=== PATIENT | female | born 1965 | race Caucasian/White ===

== ENCOUNTER 2018-06-19 06:18 | Observation (INO) ==
[2018-06-19] MEDS ORDERED: Metoprolol Tartrate 25 MG Tablet PO ONE (06:45)
[2018-06-19] MEDS ORDERED: Sod Chloride 0.9% Inj 1,000 ML IV.SIG SCH (06:45)
[2018-06-19] MEDS ORDERED: Sodium Chlor 0.9% Inj 500 ML IV.CONT ONE (06:45)
[2018-06-19] MEDS ORDERED: Chlorhexidine Gluconate 2% 1 Pack (2 Cloths) TOPICAL ONE (06:45)
[2018-06-19] MEDS ORDERED: Vancomycin Inj 1,000 MG in Sodium Chlor 0.9% Inj 250 ML IV.SIG SCH (07:00)
[2018-06-19] MEDS ORDERED: Artificial Tears Opth Oint 3.5 GM Tube ONE (07:25)
[2018-06-19] MEDS ORDERED: fentaNYL Citrate Inj 250 MCG/5 ML Ampul ONE (07:25)
[2018-06-19] MEDS ORDERED: Propofol Inj 500 MG/50 ML Vial ONE (07:26)
[2018-06-19] MEDS ORDERED: HYDROmorphone PF Inj 1 MG/ML Ampul ONE ×2 (08:09→08:26)
[2018-06-19] MEDS ORDERED: Gelatin Size 100 Topical Foam ONE (08:17)
[2018-06-19] MEDS ORDERED: Thrombin Topical Soln 5,000 UNIT Vial TOPICAL ONE (08:17)
[2018-06-19] MEDS ORDERED: ceFAZolin 1 GM Premix Inj 2 GM/100 ML PIGGYBACK IV.SIG ONE (08:17)
[2018-06-19] MEDS ORDERED: *morphine SULFATE 4 MG/ML PERIprocedure ONLY ONE ×3 (11:54→12:16)
[2018-06-19] MEDS ORDERED: fentaNYL Citrate Inj 100 MCG/2 ML Ampul ONE (11:59)
--- NOTE | 2018-06-19 12:08 | XR ---
EXAM DATE: 06/19/2018 11:57 AM EST AGE/SEX: 53 years / Female INDICATIONS: Herniated disk, artificial disk placement C6-7. CLINICAL DATA: This is the patient's initial encounter. Patient reports that signs and symptoms have been present for 1 day and indicates a pain score of 0/10. MEDICAL/SURGICAL HISTORY: None. None. COMPARISON: No prior exams available for comparison. FINDINGS: AP and lateral views of the cervical spine were obtained and demonstrate an artificial disc in place at the C6-7 level. The alignment is anatomic. An endotracheal tube and nasogastric tube are noted in place. CONCLUSION: Artificial disc in place at the C6-7 level. Electronically signed by: Jero Yousif MD Board Certified Radiologist 06/19/2018 12:07 PM [facility] Colon
[2018-06-19] MEDS ORDERED: Bisacodyl 10 MG Supp RECTAL PRN ×2 (12:29→12:31)
[2018-06-19] MEDS: Sod Chloride 0.9% Inj 1,000 ML IV.CONT SCH (12:45)
[2018-06-19] MEDS ORDERED: HYDROmorphone PF Inj 0.5 MG/0.5 ML Syringe ONE (12:49)
[2018-06-19] MEDS ORDERED: Menthol 5.8 MG Lozenge BUCCAL ONE (14:00)
--- NOTE | 2018-06-19 17:06 | P.OP ---
Preoperative Diagnosis: C6-7 disk herniation Postoperative Diagnosis: C6-7 disk herniation Date of procedure: 06/19/18 Procedure: C6-C7 anterior cervical discectomy, interbody arthroplasty using Mobi C Anesthesia: RUT Surgeon: Nicanor Schuster MD Honey Processor: Gregorio ford Pathology: none sent Operation and Findings: INDICATIONS FOR THE PROCEDURE Ms Serra is a 53 year-old female who presented with intractable neck pain and clinical evidence of C7 cervical radiculopathy. She was found to have focal disk herniation at C6-7 causing significant mass effect on the right C7 nerve root. She failed multiple modalities of nonsurgical treatment including physical therapy, analgesics, antiinflammatories, and pain management with multiple epidural steroid injections. The severity of her pain and symptoms were affecting her quality of life. An anterior cervical discectomy and arthroplasty were indicated. The [id number] details of the surgical procedure, indications, alternatives, risks and potential complications were fully discussed with the patient. The patient fully understood. All his questions were answered. No guarantees were given. She voiced requesting the procedure and signed informed consents. She was offered the alternative of delaying the procedure and continuing with nonsurgical management. DETAILS OF THE SURGICAL PROCEDURE SURGICAL APPROACH A skin incision was made along the inferior cervical crease on the left side with a #10 blade. The dissection was carried out through the platysma exposing the sternocleidomastoid muscle. The cervical spine was approached following the fascial layers of the neck, just medial to the anterior border of the sternocleidomastoid and carotid sheath by a combination of sharp and dull dissection. The omohyoid muscle was identified and carefully dissected laterally and the deep cervical fascia was carefully opened. The longus colli muscles were retracted to each side of the midline. A marker was placed at the c6-7 disc space and a cross-table lateral x-ray performed with a C-arm. An AP xray was then obtained as well, and the midline of the disk space was defined. SURGICAL DECOMPRESSION In order to decompress the anterior surface of the spinal cord it was necessary to perform a microsurgical resection of the disk. At this point in the procedure the operating microscope was draped in the usual sterile fashion and brought to the field. The rest of the surgical procedure was performed using microdissection technique with the exception of the closure. Under the operative microscopic a self-retaining retractor was placed underneath the longus colli muscle. The annulus was incised with a #15 blade and microdiscectomy was then carefully carried out using angled curets and pituitary forceps. The patient had a right disk extrusion which was producing mass affect on the exiting nerve root. This was carefully dissected with a nerve hock and resected with a think foot plate 2 mm Kerrison under high magnification. The posterior longitudinal ligament was then elevated with an angled curet and incised with a 15 bladed knife. A careful resection of the posterior longitudinal ligament was carried out using a thin footplate 2 mm Kerrison. Extruded disk fragments were causing mechanical compression over the exiting C7 nerve root were carefully dissected. The decompression was then carried out laterally, and a bilateral foraminotomy was performed with a 2 mm thin foot Kerrison. The epidural space was the systematically assessed with a nerve hook in search for disk fragments of scar tissue. An excellent decompression was achieved in both, the dural sac and bilateral exiting nerve roots. The incision was then irrigated with a large amount of antibiotic solution INTERBODY ARTHROPLASTY In order to avoid collapse of the disk space which would result in bilateral foraminal stenosis, and in order to maintain disk space height and function minimally development of adjacent level degeneration, it was necessary to place an interbody device. At this point of the procedure, gentle distraction was applied. The size of the interbody device was then assessed using a trial, and a cross table xray was done for confirmation of appropriate size and position of the device. Then the disk space was irrigated with antibiotic solution, and a 15mm by 5mm Mobi C artificial disk was carefully impacted into the disc space C6-7. An excellent position of the device was achieved. This was confirmed anatomically by feeling the space posterior to the implant and distance to the anterior surface of the dural sac. Radiological confirmation of the position was performed with a cross table AP and lateral X-ray views, performed with the C-arm. COMPLETION OF THE SURGICAL PROCEDURE Once that each interbody device was in an appropriate position, the distraction was discontinued. The position of the device as well as alignment of the spine were assessed anatomically by direct visualization, and radiologically by performing an AP and lateral X-ray of the cervical spine with the C-arm. The position of the implant was excellent. The incision was irrigated with several liters of antibiotic solution. Hemostasis was achieved with a bipolar. A 7 mm Tyson-Alba drain was left in the prevertebral space and externalized through a separate stab incision. The incision was then closed in layers. 3-0 Vicryl with interrupted sutures was used to close the platysma and subcutaneous tissue. The skin was closed with 4- 0 running subcuticular Vicryl and Dermabond was applied to the skin. The drain was secured with a 3-0 nylon. At the end of the procedure the sponge, needle and instrument counts were all correct. The estimated blood loss was less than 50 cc. No blood transfusion was given. No intraoperative complications occurred. The patient received prophylactic antibiotics. The patient was then extubated and transferred to the recovery room in stable condition.
[2018-06-19] MEDS: HYDROmorphone PF Inj 0.5 MG/0.5 ML Syringe IV.PUSH PRN (17:37)
[2018-06-19] MEDS: ceFAZolin 2 GM Premix Inj 2 GM/50 ML PIGGYBACK IV.SIG SCH (17:38)
[2018-06-19] MEDS: Senna/Docusate Sodium 8.6/50 MG Tablet PO SCH (20:44)
[2018-06-19] MEDS ORDERED: Senna/Docusate Sodium 8.6/50 MG Tablet PO SCH (21:00)
[2018-06-20] MEDS: ceFAZolin 2 GM Premix Inj 2 GM/50 ML PIGGYBACK IV.SIG SCH ×2 (00:46→09:08)
[2018-06-20 04:39] VITALS: RESP 17
[2018-06-20] MEDS: Sod Chloride 0.9% Inj 1,000 ML IV.CONT SCH ×2 (06:12→12:28)
[2018-06-20 08:06] VITALS: PULSE 59
[2018-06-20] MEDS ORDERED: Estradiol 1 MG Tablet PO SCH (09:00)
[2018-06-20] MEDS ORDERED: Pantoprazole Sodium 20 MG DR Tablet PO SCH (09:00)
[2018-06-20] MEDS: HYDROmorphone PF Inj 0.5 MG/0.5 ML Syringe IV.PUSH PRN (09:08)
[2018-06-20] MEDS: Senna/Docusate Sodium 8.6/50 MG Tablet PO SCH (09:17)
[2018-06-20 12:15] VITALS: BP 131/66; TEMP 98.2; O2SAT 93
--- NOTE | 2018-06-20 14:27 | P.PNNS ---
Subjective Interval history: The patient is stable postoperative day #1 status post anterior cervical discectomy and fusion. She complains of some mild neck pain. She denies any hoarseness. She does complain of some mild dysphagia. She is continent. She is ambulatory. She is tolerating a diet Physical Exam Vital signs: Vital Signs 06/19/18 15:31 06/19/18 20:00 06/20/18 00:00 Temperature 97.5 F L 97.5 F L 98.4 F Pulse Rate 60 60 65 Respiratory Rate 16 18 18 Blood Pressure 145/75 H 137/70 137/73 Pulse Oximetry 94 L 95 97 06/20/18 04:00 06/20/18 08:00 06/20/18 12:00 Temperature 98.1 F 98.5 F 98.2 F Pulse Rate 61 59 L 59 L Respiratory Rate 17 17 17 Blood Pressure 130/65 125/62 131/66 Pulse Oximetry 96 92 L 93 L Intake & Output 06/19/18 06/20/18 06/20/18 18:59 06:59 18:59 Intake Total 1800 / 1800 Output Total 40 / 40 25 / 25 Balance 1760 / 1760 -25 / -25 Weight 73.7 kg 73.5 kg Intake: IV 50 / 50 Ancef 2 GM Premix Inj 2 gm In 50 / 50 50 ml @ 100 mls/hr IV.SIG Q8H HENOK Rx#:[id number] Oral 150 / 150 Anesthesia Amount 1600 / 1600 Output: Urine 0 / 0 Wound Drainage 40 / 40 25 / 25 # 1 Anterior Neck Jaswinder 40 / 40 25 / 25 Other: # Voids 2 Date of Last Bowel Movement 06/18/18 Weight On Admission 73.7 kg - Routine Neurological Exam The patient is awake and alert. She is oriented by 3. Cognitive function is grossly intact. Her speech is fluent. Cranial nerve testing 2 through 12 is grossly intact. There were no focal motor nor sensory deficits. She is ambulatory and continent. Wound is clear. There is a drain in place and the drainage has been minimal. The drain will be discontinued. Assessment and Plan - Plan The patient appears to be stable postoperatively. From a neurosurgical perspective there is no reason why she cannot be discharged. Instructions have been given. She has medications at home and is to continue these. I prescribed no medications. She is to follow-up with Dr. Schuster is scheduled and call his office early next week for follow-up. All of her questions were asked and answered.
--- NOTE | 2018-06-22 14:37 | P.DS ---
Date of admission: 06/19/18 12:41 Primary care physician: North Pathak MD Brief History from admission: Ms Serra is a 53 year-old female who presented with intractable neck pain and clinical evidence of C7 cervical radiculopathy. She was found to have focal disk herniation at C6-7 causing significant mass effect on the right C7 nerve root. She failed multiple modalities of nonsurgical treatment including physical therapy, analgesics, antiinflammatories, and pain management with multiple epidural steroid injections. The severity of her pain and symptoms were affecting her quality of life. An anterior cervical discectomy and arthroplasty were indicated. DS: Summary Hospital Course: Ms. Damon underwent a C6-C7 anterior cervical discectomy, interbody arthroplasty using Mobi C for C6-7 disk herniation on 06/19/18. Her surgery went well and she was discharged home in stable conditions. - Time Spent with Patient Total time spent providing and/or coordinating discharge services: Less than 30 minutes - Quality: VTE Deep Vein Thrombosis/Pulmonary Embolism Present on Admission: No Results Procedures completed during hospitalization: C6-C7 anterior cervical discectomy, interbody arthroplasty using Mobi C - Impressions ITS Impressions Cervical Spine X-Ray 06/19/18 00:00 CONCLUSION: Artificial disc in place at the C6-7 level. Discharge Plan - Discharge Disposition Patient Disposition: Discharge Home - Discharge Order Discharge Orders: Discharge Order (Routine); Ordered 06/20/18 Ordered By: Nicanor Schuster Neurology Clear for Discharge (Routine); Ordered 06/20/18 Ordered By: Yannick Toure Neurosurgery Clear for Discharge (Routine); Ordered 06/20/18 Ordered By: Rusty Vicente - Physicians Team Primary Care Provider: [place] Pathak Attending Provider: Nicanor Schuster - Rxs /Orders / Referrals /Forms Prescriptions: No Action estradiol 0.5 mg Tablet 0.5 mg PO DAILY medroxyprogesterone 2.5 mg Tablet 2.5 mg PO DAILY omeprazole magnesium [Prilosec OTC] 20 mg Tablet,Delayed Release (Dr/Ec) 20 mg PO DAILY tramadol 50 mg Tablet 50 mg PO HS Referrals: North Pathak MD [Primary Care Provider] - See Instructions Nicanor Schuster MD [NEUROSURGERY] - See Instructions - Discharge Instructions Patient Printed Instructions: Tramadol (By mouth), Laminectomy (DC), Troup Collar (DC), Mazon Coco Collar (DC) Additional Instructions: Follow up with Dr Schuster as instructed, Call the office on Friday to confirm or make appointment. Notify him if you experience any difficulty swallowing, swelling to the neck. If you experience any shortness of breath call [phone] May continue your medications as you were at home. Notify surgeon if your pain is not being controlled by your current pain medication. Good luck in your recovery, it has been a pleasure taking care of you. Nia Campos, & Happy Holidays - Post Discharge Care Plan Care Plan Goals: Your Health Problems: Goals to Promote Your Health: * To prevent worsening of your condition * To maintain your health at the optimal level Directions to Meet Your Goals: * Take your medications as prescribed * Follow your dietary instruction * Follow activity as directed * Keep your appointments as scheduled * Take your immunizations and boosters as scheduled * If your symptoms worsen call your PCP * If no PCP go to Urgent Care or Emergency Room Smoking is dangerous to your health. Avoid second hand smoke. You may reach the 24-hour crisis hotline for domestic abuse at .
== END 2018-06-20 14:22 | disposition home or self-care (01) ==
LOC: HSDI 06:18 → HSDC 06:18 → N06 13:14
PROVIDERS: ADMIT Neurological Surgery; ATTEND Neurological Surgery